=== PATIENT | female | born 2000 | race African-American/Black ===

== ENCOUNTER 2021-11-22 13:07 | Emergency (ER) | payer SELFPAY ==
[2021-11-22] MEDS ORDERED: Acetaminophen 500 MG TAB ONE (14:03)
[2021-11-22 14:18] LABS: Bilirubin Neg (Negative); Blood, Urine Negative (Negative); Clarity Clear (Clear); Glucose, Urine (Dipstick) Normal (Negative); Ketone, Urine Negative (Negative); Leukocyte Negative (Negative); Nitrite Negative (Negative); Protein, Urine (Dipstick) Negative (Neg-Trace)
[2021-11-22 14:25] LABS: Pregnancy Test - Urine (BHCG) Negative (Negative); Pregu Control Background? CLEAR/WHITE (CLR/WHITE); Pregu Control Bar Appear? YES (CONTROL BAR)
[2021-11-25 11:25] LABS: GC by PCR *Indeterminate (NotDetected)
[2021-11-25 11:26] LABS: Chlamydia by PCR *Indeterminate (NotDetected)
== END 2021-11-22 14:55 | disposition home or self-care (01) ==
LOC: CSHERS 13:07
DX: R42 Dizziness and giddiness (principal); R51.9 Headache, unspecified; N89.8 Other specified noninflammatory disorders of vagina; R53.83 Other fatigue
CPT/HCPCS: 81003; 81025; 87480; 87491; 87510; 87591; 87660; 99284

== ENCOUNTER 2022-03-26 11:45 | Emergency (ER) | payer SELFPAY | END 2022-03-26 13:05 | disposition home or self-care (01) | LOC: CSHERS 11:45 | DX: S39.012A Strain of muscle, fascia and tendon of lower back, initial encounter (principal); X58.XXXA Exposure to other specified factors, initial encounter | CPT/HCPCS: 99283 ==

== ENCOUNTER 2022-06-07 11:29 | Emergency (ER) | payer SELFPAY ==
[2022-06-07 12:42] LABS: Bilirubin Neg (Negative); Blood, Urine 25 (Negative); Clarity Clear (Clear); Glucose, Urine (Dipstick) Normal (Negative); Ketone, Urine Negative (Negative); Leukocyte Negative (Negative); Nitrite Positive (Negative); Protein, Urine (Dipstick) Negative (Neg-Trace)
[2022-06-07 12:44] LABS: Pregnancy Test - Urine (BHCG) Negative (Negative); Pregu Control Background? CLEAR/WHITE (CLR/WHITE); Pregu Control Bar Appear? YES (CONTROL BAR)
[2022-06-07 12:56] LABS: Bacteria/HPF 3+ HPF (None Seen)
== END 2022-06-07 12:39 | disposition home or self-care (01) ==
LOC: CSHERS 11:29
DX: N39.0 Urinary tract infection, site not specified (principal); K59.00 Constipation, unspecified; R10.13 Epigastric pain
CPT/HCPCS: 81003; 81015; 81025; 99284